=== PATIENT | male | born 1980 | race Two or more races ===

== ENCOUNTER 2024-12-06 18:57 | Emergency (ER) | payer MEDICAID, SELFPAY ==
[2024-12-06 19:00] VITALS: BMI 25.8
[2024-12-06 20:33] VITALS: BP 132/87; PULSE 125; RESP 20; TEMP 37.8; O2SAT 96
--- NOTE | 2024-12-06 20:41 | XR_ITS ---
Examination: PA lateral chest 2 views Technique: Upright AP lateral chest 2 views Exam date and time: December 06, [id number] hrs. Indications: Coughing beginning several days ago. Findings: Pneumonia posterior basal segment left lower lobe Normal heart size Right lung clear Impression: Posterior basal segment left lower lobe pneumonia
--- NOTE | 2024-12-06 20:42 | PD.EDRME ---
Rapid Medical Screening Exam RME Arrival date/time: 12/06/24 18:57 44-year-old male no significant past medical history presents emergency department complaining of productive cough, body aches, and headache for over 1 month. Chief Complaint: Flu Like Symptoms Time Seen by Provider: 12/06/24 19:03 Vital signs: Vital Signs Temperature 100.0 F 12/06/24 20:33 Pulse Rate 125 H 12/06/24 20:33 Respiratory Rate 20 12/06/24 20:33 Blood Pressure 132/87 H 12/06/24 20:33 Pulse Oximetry (%) 96 12/06/24 20:33 Oxygen Delivery Method Room Air 12/06/24 20:33 Vital signs reviewed by provider: Yes
[2024-12-06 21:22] LABS: Strep A Rapid Negative (Negative)
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
--- NOTE | 2024-12-06 21:35 | PC.NURSE ---
NO ANSWER FOR MEDS AND DC PAPERS
--- NOTE | 2024-12-06 21:50 | PC.NURSE ---
NO ANSWER FOR MEDS AND DC PAPERWORK
--- NOTE | 2024-12-06 22:09 | PC.NURSE ---
NO ANSWER FOR MEDS AND DC PAPERWORK
== END 2024-12-06 22:10 | disposition left against medical advice (07) ==
PROVIDERS: Emergency Provider Emergency Medicine
DX: R05.9 Cough, unspecified (principal); Z53.29 Procedure and treatment not carried out because of patient's decision for other reasons
CPT/HCPCS: 71046; 87400; 87651; 87811; 99283